=== PATIENT | male | born 1995 | race Caucasian/White ===

== ENCOUNTER 2019-06-11 11:18 | Emergency (ER) | payer OTHER ==
[2019-06-11 11:46] VITALS: BP 132/71
[2019-06-11] MEDS ORDERED: DIPH/PERTUSS(ACELL)/TETANUS VAC/PF 0.5 ML SYR (>=10YO) IM ONE (12:13)
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
[2019-06-11] MEDS ORDERED: NAPROXEN 250 MG TABLET PO ONE (12:21)
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
== END 2019-06-11 14:11 | disposition home or self-care (01) ==
LOC: ER 11:18
DX: S80.11XA Contusion of right lower leg, initial encounter (principal); S80.01XA Contusion of right knee, initial encounter; S00.511A Abrasion of lip, initial encounter; S10.91XA Abrasion of unspecified part of neck, initial encounter; R10.9 Unspecified abdominal pain; V43.62XA Car passenger injured in collision with other type car in traffic accident, initial encounter
CPT/HCPCS: 70360; 71046; 90715; 99283